=== PATIENT | male | born 1955 | race Caucasian/White ===

== ENCOUNTER 2017-05-17 05:27 | Emergency (ER) | payer OTHER ==
[2017-05-17 05:27] VITALS: BMI 33.6
[2017-05-17 05:32] VITALS: BP 176/90; PULSE 85; RESP 22; TEMP 97.8; O2SAT 98
[2017-05-17 06:24] LABS: URINE BILIRUBIN NEGATIVE (NEGATIVE); URINE BLOOD NEGATIVE (NEGATIVE); URINE CLARITY Clear (Clear); URINE COLOR Straw (YELLOW); URINE GLUCOSE (UA) NORMAL (Normal); URINE HYALINE CAST 0-2 /lpf (0-2); URINE LEUKOCYTE ESTERASE NEG Leu/uL (Negative); URINE NITRATE NEGATIVE (NEGATIVE); URINE PROTEIN NEGATIVE (NEGATIVE); URINE UROBILINOGEN NORMAL mg/dL (0.2-1.0)
--- NOTE | 2017-05-17 06:38 | C.PDOC ---
History Of Present Illness 62 y/o male presents to ED with complaints of dysuria that began last night. Patient states difficulty getting urine out completely. Denies fever, abdominal pain, vomiting, and any prostate problems. Time Seen by Provider: 05/17/17 05:46 Chief Complaint (Nursing): Male Genitourinary History Per: Patient History/Exam Limitations: no limitations Onset/Duration Of Symptoms: Hrs Current Symptoms Are (Timing): Still Present Associated Symptoms: Urinary Symptoms. denies: Fever, Chills, Nausea, Vomiting , Diarrhea Alleviating Factors: None Recent travel outside of the [place]: No Past Medical History Reviewed: Historical Data, Nursing Documentation, Vital Signs Vital Signs: Last Vital Signs Temp 97.8 F 05/17/17 05:30 Pulse 85 05/17/17 05:30 Resp 22 05/17/17 05:30 BP 176/90 H 05/17/17 05:30 Pulse Ox 98 05/17/17 06:42 - Medical History PMH: Arthritis, Gastritis, HTN, Hypercholesterolemia Family History: States: Unknown Family Hx - Social History Hx Tobacco Use: No Hx Alcohol Use: Yes Hx Substance Use: No - Immunization History Hx Tetanus Toxoid Vaccination: No Hx Influenza Vaccination: No Hx Pneumococcal Vaccination: No Review Of Systems Constitutional: Negative for: Fever, Chills Gastrointestinal: Negative for: Nausea, Vomiting, Abdominal Pain, Diarrhea Genitourinary: Positive for: Dysuria Neurological: Negative for: Weakness, Numbness Physical Exam - Physical Exam Appears: Well, Non-toxic, No Acute Distress, Other (comfortable) Skin: Normal Color, Warm, Dry Head: Atraumatic, Normacephalic Eye(s): bilateral: Normal Inspection Oral Mucosa: Moist Neck: Supple Chest: Symmetrical, No Tenderness Cardiovascular: Rhythm Regular Respiratory: Normal Breath Sounds, No Decreased Breath Sounds, No Rales, No Rhonchi, No Wheezing Gastrointestinal/Abdominal: Soft, Tenderness (Suprapubic ), No Distention, No Guarding, No Rebound Neurological/Psych: Oriented x3, Normal Speech, Normal Cognition ED Course And Treatment O2 Sat by Pulse Oximetry: 98 (RA) Pulse Ox Interpretation: Normal Medical Decision Making Medical Decision Making: Ordered urine culture, bladder scan, and urinalysis. Bladder Scan: - 220ml in bladder Disposition Counseled Patient/Family Regarding: Studies Performed, Diagnosis, Need For Followup, Rx Given - Disposition Referrals: Pino Alcocer MD [Staff Provider] - Disposition: HOME/ ROUTINE Disposition Time: 06:55 Condition: STABLE Additional Instructions: FOLLOW UP WITH UROLOGY WITHIN 1 WEEK USE MEDICATIONS DIRECTED RETURN TO EMERGENCY ROOM IF SYMPTOMS WORSEN SEGUIMIENTO CON UROLOGA DENTRO DE 1 SEMANA USE MEDICAMENTOS SEGN LO INDICADO REGRESE AL MELISSA DE EMERGENCIA SI LOS SNTOMAS EMPEORAN Prescriptions: Ciprofloxacin [Cipro] 1 tab PO BID #14 tab Tamsulosin [Flomax] 0.4 mg PO DAILY #7 cap Instructions: Dysuria, Adult (DC) Forms: [employer] (Greenlandic) Print Language: SWISS - POA Present On Arrival: None - Clinical Impression Clinical Impression: Dysuria, Difficulty urinating - Scribe Statement The provider has reviewed the documentation as recorded by the Scribleilani Pierce All medical record entries made by the Scribe were at my direction and personally dictated by me. I have reviewed the chart and agree that the record accurately reflects my personal performance of the history, physical exam, medical decision making, and the department course for this patient. I have also personally directed, reviewed, and agree with the discharge instructions and disposition.
== END 2017-05-17 07:03 | disposition home or self-care (01) ==
LOC: C.ER 05:27 → SUPCPDRO 05:27 → C.ER 07:03
DX: R30.0 Dysuria (principal)

== ENCOUNTER 2017-12-20 10:54 | Emergency (ER) | payer OTHER ==
[2017-12-20 10:54] VITALS: BMI 33.6
[2017-12-20 11:14] VITALS: BP 137/80; PULSE 78; RESP 18; TEMP 98.5; O2SAT 97
--- NOTE | 2017-12-20 11:21 | C.PDOC ---
History Of Present Illness 62 year old male presents to ED for evaluation of rash to both arms for 1 week. Denies fever, chills, use of new medication, prolonged exposure to sun, or new product used on arms. Time Seen by Provider: 12/20/17 11:15 Chief Complaint (Nursing): Abnormal Skin Integrity History Per: Patient History/Exam Limitations: no limitations Onset/Duration Of Symptoms: Days Current Symptoms Are (Timing): Still Present Past Medical History Reviewed: Historical Data, Nursing Documentation, Vital Signs Vital Signs: Last Vital Signs Temp 98.5 F 12/20/17 11:12 Pulse 78 12/20/17 11:12 Resp 18 12/20/17 11:12 BP 137/80 12/20/17 11:12 Pulse Ox 97 12/20/17 11:12 - Medical History PMH: Arthritis, Gastritis, HTN, Hypercholesterolemia Surgical History: No Surg Hx Family History: States: No Known Family Hx - Social History Hx Tobacco Use: No Hx Alcohol Use: Yes Hx Substance Use: No - Immunization History Hx Tetanus Toxoid Vaccination: No Hx Influenza Vaccination: No Hx Pneumococcal Vaccination: No Review Of Systems Except As Marked, All Systems Reviewed And Found Negative. Constitutional: Negative for: Fever, Chills Skin: Positive for: Rash (Arms bilaterally. Denies use of any new products, medications, or prolonged sun exposure. ) Physical Exam - Physical Exam Appears: Non-toxic, No Acute Distress Skin: Other (Erythematous macules and patches from distal humerus down to arms bilaterally.) Head: Atraumatic, Normacephalic Eye(s): bilateral: Normal Inspection Neck: Normal Chest: Symmetrical, No Deformity Cardiovascular: Rhythm Regular Respiratory: Normal Breath Sounds Neurological/Psych: Oriented x3, Normal Speech ED Course And Treatment O2 Sat by Pulse Oximetry: 97 (RA) Pulse Ox Interpretation: Normal Medical Decision Making Medical Decision Making: Plan: * Referred to see primary care physician/battery test engineer within next 1-2 days. Disposition Counseled Patient/Family Regarding: Diagnosis, Need For Followup, Rx Given - Disposition Referrals: [facility] [Outside] [facility] [Outside] Disposition: HOME/ ROUTINE Disposition Time: :18 Condition: STABLE Additional Instructions: FOLLOW UP WITH YOUR PMD/CLINIC IN 1-2 DAYS FOR RE-EVALUATION. USE DOVE SOAP FOR SENSITIVE SKIN. IF SYMPTOMS GET WORSE OR ANY NEW CONCERNING SYMPTOMS DEVELOP RETURN TO ED. Prescriptions: Triamcinolone 0.1% [Triamcinolone 0.1% Cream] 1 apful TP BID #80 g Instructions: Dermatitis Forms: [facility] (Spanish), Gen Discharge Inst [place] Print Language: HUNGARIAN - Clinical Impression Clinical Impression: Rash and nonspecific skin eruption - PA / INSIDE TECHNICAL SALES REPRESENTATIVE / Resident Statement MD/DO has reviewed & agrees with the documentation as recorded. - Scribe Statement The provider has reviewed the documentation as recorded by the Srideviibe Rudolph Dyer All medical record entries made by the Abhishek were at my direction and personally dictated by me. I have reviewed the chart and agree that the record accurately reflects my personal performance of the history, physical exam, medical decision making, and the department course for this patient. I have also personally directed, reviewed, and agree with the discharge instructions and disposition.
== END 2017-12-20 11:38 | disposition home or self-care (01) ==
LOC: C.ER 10:54
DX: R21 Rash and other nonspecific skin eruption (principal)

== ENCOUNTER 2018-04-17 09:11 | Outpatient (CLI) | payer OTHER | END 2018-04-17 09:12 | disposition home or self-care (01) | LOC: C.RADH 09:11 | DX: R74.8 Abnormal levels of other serum enzymes (principal) ==

== ENCOUNTER 2018-04-30 09:14 | Outpatient (CLI) | payer OTHER | END 2018-04-30 09:15 | disposition home or self-care (01) | LOC: C.LAB 09:14 | DX: N40.0 Benign prostatic hyperplasia without lower urinary tract symptoms (principal) ==